=== PATIENT | male | born 1945 | race Caucasian/White ===

== ENCOUNTER 2018-11-20 13:10 | Outpatient (CLI) | payer MEDICARE, BC ==
--- NOTE | 2018-11-20 13:27 | RAD ---
CHEST 2 VIEWS: INDICATION: Dyspnea. COMPARISON: Comparison from 12/02/2016 was reviewed. FINDINGS: There is mild cardiomegaly. Lungs are clear. There is a multilead AICD overlying the left chest wal l. There is a chronic-appearing compression abnormality involving L1 which is stable. IMPRESSION: Stable mild cardiomegaly. No acute cardiopulmonary abnormality. POS: C
== END 2018-11-20 13:11 | disposition home or self-care (01) ==
LOC: RAD 13:10
PROVIDERS: ATTEND Internal Medicine Pulmonary Disease
DX: R06.00 Dyspnea, unspecified (principal); I51.7 Cardiomegaly
CPT/HCPCS: 71046

== ENCOUNTER 2019-12-12 10:06 | Observation (INO) | payer MEDICARE, BC ==
[~2019-12-12 10:06] MED LIST: Iopamidol-370 76% 500 ML 1 ML ONE
[2019-12-12 10:35] LABS: #Basophils 0.1 thou/uL (0.0-0.2); #Eosinphils 0.2 thou/uL (0.0-0.7); #Lymphocytes 2.5 thou/uL (1.20-3.40); #Monocytes 1.4 thou/uL (0.11-0.59); #Neutrophils 9.5 thou/uL (1.40-6.50); %Basophils 0.7 % (0.0-1.0); %Eosinophils 1.7 % (0.0-10.0); %Lymphocytes 17.9 % (21.0-51.0); %Monocytes 10.4 % (0.0-10.0); %Neutrophils 69.4 % (42.0-75.0); Hemoglobin 14.6 g/dL (14.0-18.0); Mean Corpuscular Hemoglobin 30.5 pg (27.0-31.0); Mean Corpuscular Volume 95.3 fL (78.0-98.0); Platelet Count 223 thou/uL (130-400); RBC Distribution Width 14.1 % (11.5-14.5); Red Blood Cell (RBC) Count 4.77 mill/uL (4.70-6.10); White Blood Cell (WBC) Count 13.7 thou/uL (4.8-10.8)
[2019-12-12 10:44] LABS: INR-International Normal Ratio 1.9; PTT 38.5 SEC (22.9-36.1); Prothrombin Time 21.9 SEC (12.0-14.7)
--- NOTE | 2019-12-12 10:58 | CT ---
CT ANGIOGRAM NECK WITH CONTRAST CT ANGIOGRAM BRAIN WITH CONTRAST: DATE: 12/12/2019 HISTORY: 74-year-old male with acute stroke symptoms: Left sided weakness. Dr. Birch verbally gave this level 2 stroke alert report to ER Dr. Parker at 10:44 AM 12/12/2019 TECHNIQUE: After IV contrast injection, arterial bolus chasing technique scan performed from AP window to vertex of head. Coronal and sagittal 3-D MIP reconstructions. FINDINGS: No thrombus or high-grade stenosis of M1 segments of bilateral MCAs, bilateral carotid siphons, bilat eral A1 and A2 segments of ACAs, intracranial bilateral vertebral arteries, basilar, P1 and P2 segments of bilateral meat lugger, proximal aspects of bilateral superior cerebellar's, bilateral PICA s, bi lateral cervical vertebral levels, brachiocephalic, bilateral subclavian, bilateral common carotid, and bilateral cervical internal carotid, arteries. There is mild calcified plaque in the bilateral pr oximal internal carotid arteries and proximal right subclavian artery. IMPRESSION: No evidence of high-grade stenosis, thrombosis, or occlusion, of major arteries of head and neck.
[2019-12-12 10:59] LABS: ALT (SGPT) 11 U/L (8-55); AST (SGOT) 13 U/L (5-34); Alkaline Phosphatase 47 U/L (40-110); Anion Gap 10 mmol/L (10-20); BUN (Urea Nitrogen) 23 mg/dL (8.4-25.7); Bilirubin, Total 0.8 mg/dL (0.2-1.2); Calc. Creatinine Clearance 0 mL/min (70-130); Calcium 9.1 mg/dL (7.8-10.44); Carbon Dioxide 28 mmol/L (23-31); Chloride 103 mmol/L (98-107); Estimated GFR-MDRD 68; Glucose 125 mg/dL (83-110); Potassium 4.3 mmol/L (3.5-5.1); Sodium 137 mmol/L (136-145)
--- NOTE | 2019-12-12 11:17 | CT ---
CT BRAIN WITHOUT CONTRAST: Date; 12/12/2019 HISTORY: Left-sided weakness which has resolved. COMPARISON: None. FINDINGS: There is no acute hemorrhage or infarct. No midline shift or mass effect. Ventricular size and extra- axial CSF spaces are normal. Calvarium is intact. Paranasal sinuses and mastoids are clear. IMPRESSION: No acute intracranial abnormality. Dr. Parker notified of findings via telephone at 1033 hours. CODE CR. POS: HOME
[2019-12-12] MEDS ORDERED: Aspirin Chewable 81 MG TAB ONE (12:57)
[2019-12-12] MEDS ORDERED: Acetaminophen 325 MG TAB PO PRN (14:27)
[2019-12-12] MEDS ORDERED: Furosemide 40 MG TAB PO SCH (14:30)
[2019-12-12] MEDS ORDERED: Spironolactone 25 MG TAB PO SCH (14:30)
[2019-12-12] MEDS ORDERED: Albuterol Sulfate 1.25 MG/3 ML NEB NEB PRN (14:30)
--- NOTE | 2019-12-12 15:12 | HP ---
CHIEF COMPLAINT: Numbness, left side. HISTORY OF PRESENT ILLNESS: This is a 74-year-old male with history of atrial fibrillation on full anticoagulation; chronic systolic heart failure with a defibrillator in place; hypertension; dyslipidemia; asthma, who reports to the emergency room with the above complaint. The patient states he noticed feeling weak on his left upper arm and shoulder, sometime between 5:00 and 6:30 a.m. He notices it more when he got up to go to the bathroom. He denies any prior history, denies any injuries, states that this is exclusive to the area around his left shoulder and deltoid. He does not note any problems with his elbow or below, and denies any pain. He also denies any facial involvement, vision changes, speech changes, or left leg involvement. The patient was evaluated in the emergency room and presentation concerning for TIA. He received 324 mg of aspirin, and hospitalist called for admission. Given the time of presentation and full anticoagulation, he was not a candidate for tPA. ALLERGIES: NO KNOWN DRUG ALLERGIES. CURRENT MEDICATIONS: Reconciled with the patient by his memory. 1. Spironolactone 25 mg daily. 2. Singulair 10 mg as needed. 3. Juju as needed. 4. Digoxin 125 mcg daily. 5. Carvedilol 6.25 mg b.i.d. 6. Furosemide 40 mg daily. 7. Xarelto 20 mg daily, last dose this morning. 8. Lisinopril 2.5 mg daily. 9. Potassium, unknown dose. 10. Rosuvastatin 10 mg at bedtime. 11. Symbicort twice daily. PAST MEDICAL HISTORY: 1. Atrial fibrillation, on full anticoagulation with Xarelto. 2. Asthma. 3. Allergic rhinitis. 4. Hypertension. 5. Coronary artery disease and history of systolic heart failure with defibrillator. 6. Carotid plaques. PAST SURGICAL HISTORY: 1. Defibrillator. 2. Tonsillectomy. SOCIAL HISTORY: The patient lives with Niya, he uses alcohol 2 to 3 times per week, denies any tobacco. His surrogate decision makers are either a son or daughter and he is a full code. FAMILY HISTORY: Significant for mom who of an [facility], sister and dad who of Parkinson disease. REVIEW OF SYSTEMS: Negative for vision changes, speech changes, nausea, vomiting, or abdominal pain. Also negative for chest pain, difficulty breathing or swelling in legs. All remaining review of systems are reviewed and negative. PHYSICAL EXAMINATION: VITAL SIGNS: Blood pressure 122/59, pulse 85, respirations 17, temperature 97.9 , sat 98% on room air. GENERAL: Awake, alert, responsive, in no apparent distress. Able to speak in full sentences. HEENT: Pupils are equal, round, and reactive to light. Oral mucosa is pink and moist. NECK: Supple, nontender. LYMPHATICS: No palpable cervical or supraclavicular lymphadenopathy. LUNGS: Clear to auscultation bilateral. No audible wheezing, rhonchi, or rales. HEART: Normal S1, S2. Regular rate and rhythm. No significant murmur. ABDOMEN: Soft with present bowel sounds. Nontender. Nondistended. EXTREMITIES: No clubbing, cyanosis, or edema. NEUROLOGIC: The cranial nerves 2 through 12 are intact. Upper extremities at the deltoids 5- on the left, 5+/5 on the right, otherwise strength is 5/5 bilateral in the lower extremities and any other muscle groups of the upper extremities. No ankle clonus. Unable to elicit reflexes bilateral. Cerebellar functions slowed , but intact bilateral on [id number]. PSYCH: Appears euthymic, a&o x 4 VASCULAR: 2+ radial pulses LABORATORY DATA: Reviewed. CBC; 13.7, 14.6, 45.4, 223. INR 1.9. Chemistry; 137, 4.3, 103, 28, 23, 1.06, 125. T-bilirubin 0.8, AST 13, ALT 11, alkaline phosphatase 47, total protein 7, albumin 4. Troponin negative. CK 39. CT [place] angiography with contrast shows no evidence of high-grade stenosis, thrombosis, or occlusion at the major arteries of the head and neck. Brain CT is personally reviewed. No acute intracranial abnormality. EKG shows a paced rhythm. No ST changes. IMPRESSION: 1. Left shoulder paresthesias and weakness, new in onset in a patient who was not a candidate for tPA. 2. History of chronic systolic heart failure, compensated. 3. History of asthma, no signs of acute exacerbation. 4. Hypertension. 5. Dyslipidemia. 6. Chronic atrial fibrillation, on full anticoagulation with a paced rhythm. 7. Coronary artery disease, asymptomatic. PLAN: 1. Observation status in the hospital. 2. TIA workup to include a brain MRI, echocardiogram, evaluation by speech, PT, OT as well as neurology consultation. 3. Because of the focal neurologic changes in the left deltoid area/shoulder, we will order an MRI of the C-spine. 4. Check a fasting lipid profile. Continue a statin. 5. The patient has not taken any of his home medications except for Xarelto. We will order them all now with hold parameters for his antihypertensives. 6. Monitor on telemetry. 7. Anticipated length of stay is overnight based for the workup above. 8. DVT prophylaxis. He is fully anticoagulated with Xarelto. 9. GI prophylaxis not indicated. He will be written for a heart healthy diet. 10. Code status is full and surrogate decision maker is as above. 11. Reviewed the plan of care with the patient, who demonstrates understanding and agrees. No questions or further needs at the end of evaluation. 12. The patient is at high risk given age, comorbidities, and current presentation. Job ID: [id number] MTDD
[2019-12-12 15:35] VITALS: BMI 23.3
[2019-12-12] MEDS ORDERED: Lisinopril 2.5 MG TAB PO SCH (16:00)
[2019-12-12] MEDS ORDERED: Digoxin 0.125 MG TAB PO SCH (16:00)
[2019-12-12] MEDS: Carvedilol 6.25 MG TAB PO SCH (16:52)
[2019-12-12] MEDS ORDERED: Rivaroxaban 10 MG TAB PO SCH (17:00)
[2019-12-12] MEDS: Mometasone 200 MCG/Formoterol 5 MCG 120 PUFF INHALER INH SCH (19:28)
[2019-12-12] MEDS ORDERED: Rosuvastatin 20 MG TAB PO SCH (21:00)
[2019-12-13] MEDS ORDERED: Rivaroxaban 10 MG TAB PO SCH (06:00)
[2019-12-13] MEDS: Mometasone 200 MCG/Formoterol 5 MCG 120 PUFF INHALER INH SCH (07:29)
[2019-12-13] MEDS ORDERED: Furosemide 40 MG TAB PO SCH (07:30)
[2019-12-13] MEDS ORDERED: Spironolactone 25 MG TAB PO SCH (08:00)
[2019-12-13] MEDS ORDERED: Potassium Chloride 10 MEQ TAB PO SCH (08:00)
[2019-12-13 08:42] LABS: #Basophils 0.1 thou/uL (0.0-0.2); #Eosinphils 0.1 thou/uL (0.0-0.7); #Lymphocytes 2.5 thou/uL (1.20-3.40); #Monocytes 0.8 thou/uL (0.11-0.59); #Neutrophils 6.9 thou/uL (1.40-6.50); %Basophils 0.7 % (0.0-1.0); %Eosinophils 1.2 % (0.0-10.0); %Lymphocytes 23.7 % (21.0-51.0); %Monocytes 7.9 % (0.0-10.0); %Neutrophils 66.5 % (42.0-75.0); Hemoglobin 13.8 g/dL (14.0-18.0); Mean Corpuscular HGB CONC 31.7 g/dL (32.0-36.0); Mean Corpuscular Hemoglobin 30.1 pg (27.0-31.0); Mean Corpuscular Volume 95.1 fL (78.0-98.0); Mean Platelet Volume 7.9 fL (7.4-10.4); Platelet Count 207 thou/uL (130-400); RBC Distribution Width 13.9 % (11.5-14.5); Red Blood Cell (RBC) Count 4.57 mill/uL (4.70-6.10); White Blood Cell (WBC) Count 10.4 thou/uL (4.8-10.8)
[2019-12-13] MEDS ORDERED: Lisinopril 2.5 MG TAB PO SCH (09:00)
[2019-12-13] MEDS ORDERED: Aspirin 81 mg Enteric Coated Tablet PO SCH (09:00)
[2019-12-13] MEDS ORDERED: Digoxin 0.125 MG TAB PO SCH (09:00)
[2019-12-13 09:01] LABS: Anion Gap 11 mmol/L (10-20); BUN (Urea Nitrogen) 17 mg/dL (8.4-25.7); Calc. Creatinine Clearance 67 mL/min (70-130); Calcium 8.5 mg/dL (7.8-10.44); Carbon Dioxide 26 mmol/L (23-31); Cardiac Risk 2.7 (Less than 4.5); Chloride 104 mmol/L (98-107); Cholesterol 104 mg/dl (< 200 Desired); Estimated GFR-MDRD 66; Glucose 201 mg/dL (83-110); HDL Cholesterol 39 mg/dL (>60 Neg Risk); LDL Cholesterol, Calculated 48 mg/dL; Potassium 3.8 mmol/L (3.5-5.1); Sodium 137 mmol/L (136-145); Triglycerides 85 mg/dL (Less than 150)
[2019-12-13] MEDS: Carvedilol 6.25 MG TAB PO SCH ×2 (10:17→17:10)
--- NOTE | 2019-12-13 13:14 | CON ---
DATE OF CONSULTATION: 12/13/2019 CONSULTING SERVICE: Neurology. REASON FOR CONSULTATION: Numbness and paresthesias on the left side. HISTORY OF PRESENT ILLNESS: Mr. Pepe Zaragoza is a 74-year-old male with history significant for an atrial fibrillation, on Xarelto; chronic systolic heart failure, status post defibrillator placement; dyslipidemia; asthma; and hypertension, presented to the emergency room with tingling and paresthesias on the left side of the body. According to the patient, he felt weak in the left upper extremity around 5:00 to 6.30 a.m. yesterday when he tried to go to the restroom. He denies any prior history or episodes. He also denies nausea, vomiting, headache, vision changes, problems with speech, or problems with swelling or weakness in the left leg. He came to the emergency room for further evaluation and was given aspirin and then admitted for further evaluation. ALLERGIES: NO KNOWN DRUG ALLERGIES. CURRENT MEDICATIONS: 1. Spironolactone 25 mg daily. 2. Singulair 10 mg as needed. 3. Juju as needed. 4. Digoxin 125 mcg daily. 5. Carvedilol 6.25 mg b.i.d. 6. Furosemide 40 mg daily. 7. Xarelto 20 mg daily. 8. Lisinopril 2.5 mg daily. 9. Potassium. 10. Rosuvastatin. 11. Symbicort twice daily. PAST MEDICAL HISTORY: Atrial fibrillation, on Xarelto; asthma; coronary artery disease; allergic rhinitis; hypertension; status post defibrillator placement. PAST SURGICAL HISTORY: Status post defibrillator placement, tonsillectomy. SOCIAL HISTORY: The patient lives with Niya. He uses alcohol 2 to 3 times a week. He denies any tobacco abuse. FAMILY HISTORY: Significant for mother, who of myocardial infarction. A sister and father had Parkinson disease. REVIEW OF SYSTEMS: Denies nausea, vomiting, headache, chest pain, or abdominal pain. DATA REVIEWED: HCT negative for seizure activity. PHYSICAL EXAMINATION: VITAL SIGNS: Blood pressure 120/60, pulse 80, respiratory rate 18. GENERAL: Awake, alert. HEENT: Pupils are equal and reactive to light. Atraumatic, normocephalic. NECK: Supple. CHEST: Clear. ABDOMEN: Soft. HEART: Regular rate and rhythm. NEUROLOGIC: Mental status: The patient is alert and oriented to person, place, and time. Cranial nerves 2 through 12 intact. Motor: Muscle tone and bulk are normal. Strength is 4+/5 in the left upper extremity, wrist 5/5. Cerebellar: Slow on the left secondary to weakness. Sensory intact. Gait not tested because of the patient safety reasons. Did review the CT scan of the brain, which did not reveal any acute intracranial pathology. CT [place] angiography showed no evidence of high-grade stenosis, thrombosis, or occlusion at the major arteries of head and neck. ASSESSMENT AND PLAN: A 74-year-old male presented with left upper extremity paresthesias and weakness. He has extensive cardiac history and also hypertension and hyperlipidemia with chronic atrial fibrillation, on Xarelto. A head CT reviewed, which was negative for acute intracranial pathology. MRI of the brain could not be performed since the patient has pacemaker, which is not compatible. Consider repeat head CT in 48 hours after symptom onset. Neuro checks every 4 hours. Continue aspirin and statin for secondary stroke prevention. Continue home medication. Continue telemetry. Continue medical management per primary team. PT/OT/Speech. Recommend echocardiography to rule out cardioembolic source. We will continue to follow. Thank you for the consult. Job ID: [id number] MTDD
--- NOTE | 2019-12-13 15:05 | CT ---
CT ANGIOGRAM NECK WITH CONTRAST CT ANGIOGRAM BRAIN WITH CONTRAST: DATE: 12/12/2019 HISTORY: 74-year-old male with acute stroke symptoms: Left sided weakness. Dr. Birch verbally gave this level 2 stroke alert report to ER Dr. Parker at 10:44 AM 12/12/2019 TECHNIQUE: After IV contrast injection, arterial bolus chasing technique scan performed from AP window to vertex of head. Coronal and sagittal 3-D MIP reconstructions. FINDINGS: No thrombus or high-grade stenosis of M1 segments of bilateral MCAs, bilateral carotid siphons, bilat eral A1 and A2 segments of ACAs, intracranial bilateral vertebral arteries, basilar, P1 and P2 segments of bilateral resident surgeon, proximal aspects of bilateral superior cerebellar's, bilateral PICA s, bi lateral cervical vertebral levels, brachiocephalic, bilateral subclavian, bilateral common carotid, and bilateral cervical internal carotid, arteries. There is mild calcified plaque in the bilateral pr oximal internal carotid arteries and proximal right subclavian artery. IMPRESSION: No evidence of high-grade stenosis, thrombosis, or occlusion, of major arteries of head and neck. Transcribed Date/Time: 12/13/2019 3:05 PM
[2019-12-13 15:46] VITALS: BP 106/52; TEMP 98.5
--- NOTE | 2019-12-13 16:01 | PDOC.HOSPP ---
- Subjective Encounter Date: 12/13/19 (f/u left shoulder weakness) Encounter Time: 15:59 Subjective: Pt reports his shoulder is improved - stronger and less numbness. HE denies any new symptoms or concerns. - Objective Vital Signs & Weight: Vital Signs (12 hours) Temp Pulse Pulse Pulse Resp BP BP 12/13/19 15:19 98.5 F 79 16 12/13/19 11:58 97.7 F 80 18 12/13/19 10:17 80 12/13/19 10:03 80 87 111/55 L 126/89 12/13/19 07:08 98.3 F 80 18 12/13/19 04:00 97.5 F L 80 18 BP Pulse Ox 12/13/19 15:19 106/52 L 95 12/13/19 11:58 105/52 L 98 12/13/19 10:17 12/13/19 10:03 12/13/19 07:08 119/58 L 97 12/13/19 04:00 115/56 L 98 Weight Weight 176 lb 6.4 oz I&O: 12/12/19 12/13/19 12/14/19 06:59 06:59 06:59 Intake Total 1100 600 Output Total 450 Balance 650 600 Result Diagrams: 12/13/19 08:24 12/13/19 08:24 EKG Reviewed by me: Yes (tele - paced rhythm) Hospitalist ROS - Medication Medications: Active Medications Generic Name Dose Route Start Last Admin Trade Name Freq PRN Reason Stop Dose Admin Aspirin 81 mg 12/13/19 09:00 12/13/19 10:17 Ecotrin PO 81 mg DAILY PAULA Administration Carvedilol 6.25 mg 12/12/19 17:00 12/13/19 10:17 Coreg PO 6.25 mg BID-WM PAULA Administration Digoxin 0.125 mg 12/13/19 09:00 12/13/19 10:17 Lanoxin PO 0.125 mg DAILY PAULA Administration Furosemide 40 mg 12/13/19 07:30 12/13/19 06:06 Lasix PO 40 mg DAILY-AC PAULA Administration Lisinopril 2.5 mg 12/13/19 09:00 12/13/19 10:17 Zestril PO 2.5 mg DAILY PAULA Administration Mometasone Furoate/Formoterol Fumar 2 puff 12/12/19 18:30 12/13/19 07:29 Dulera 200 Mcg/5 Mcg Inhaler INH 2 puff BID-RT PAULA Administration Potassium Chloride 10 meq 12/13/19 08:00 12/13/19 10:17 Klor-Con 10 PO 10 meq QAM-WM PAULA Administration Rivaroxaban 20 mg 12/13/19 06:00 12/13/19 06:06 Xarelto PO 20 mg 0600 PAULA Administration Rosuvastatin Calcium 20 mg 12/12/19 21:00 12/12/19 20:19 Crestor PO 20 mg HS PAULA Administration Spironolactone 25 mg 12/13/19 08:00 12/13/19 10:17 Aldactone PO 25 mg QAM-WM PAULA Administration - Exam General Appearance: NAD Heart: RRR, no murmur Respiratory: CTAB, no wheezes, no rales, no ronchi, no tachypnea Gastrointestinal: soft, non-tender, non-distended, normal bowel sounds Extremities: no cyanosis, no clubbing, no edema Musculoskeletal: normal tone Hosp A/P (1) Shoulder weakness Code(s): R29.898 - [facility] SYMPTOMS AND SIGNS INVOLVING THE MUSCULOSKELETAL SYSTEM Status: Acute (2) Chronic atrial fibrillation Code(s): I48.20 - CHRONIC ATRIAL FIBRILLATION, UNSPECIFIED Status: Chronic (3) Chronic systolic heart failure Code(s): I50.22 - CHRONIC SYSTOLIC (CONGESTIVE) HEART FAILURE Status: Chronic (4) Asthma Code(s): J45.909 - UNSPECIFIED ASTHMA, UNCOMPLICATED Status: Chronic Qualifiers: Asthma severity: unspecified severity Asthma persistence: persistent (5) Hypertension Code(s): I10 - ESSENTIAL (PRIMARY) HYPERTENSION Status: Chronic Qualifiers: Hypertension type: essential hypertension Qualified Code(s): I10 - Essential (primary) hypertension (6) Coronary artery disease Code(s): I25.10 - ATHSCL HEART DISEASE OF [place] CORONARY ARTERY W/O ANG PCTRS Status: Chronic Qualifiers: Coronary Disease-Associated Artery/Lesion type: [place] artery (7) Carotid artery plaque Code(s): I65.29 - OCCLUSION AND STENOSIS OF UNSPECIFIED CAROTID ARTERY Status : Chronic Qualifiers: Laterality: unspecified laterality Qualified Code(s): I65.29 - Occlusion and stenosis of unspecified carotid artery (8) Dyslipidemia Code(s): E78.5 - HYPERLIPIDEMIA, UNSPECIFIED Status: Chronic - Plan Pt overall improved Appreciate Neurology eval - cannot rule out stroke and unable to complete MRI due to defibrillator - repeat head CT now to check for interval change Lipids well controlled paced rhythm on tele - await Echo - pt sees Dr. De La Cruz as an outpatient dvt prophy - ambulatory gi prophy - not indicated code status full anticipate d/c tonight after repeat head CT complete. pt is on appropriate medications for stroke risk reduction
--- NOTE | 2019-12-13 17:04 | CT ---
HEAD CT WITHOUT CONTRAST: Comparison: 12-12-2019 History: Evaluate for interval change. Stroke versus transit ischemic attack. FINDINGS: No parenchymal hemorrhage. No extraaxial hematoma. No midline shift. Basilar cisterns are patent. Brain volume, age appropriate. Cortical ramos white matter differentiatio n is preserved. No hydrocephalus. Adequate aeration of the visualized sinuses and mastoid air cells. Calvarium is intact. IMPRESSION: No acute intracranial process. POS: PPP
--- NOTE | 2019-12-14 12:30 | DIS ---
DATE OF ADMISSION: 12/12/2019 DATE OF DISCHARGE: 12/13/2019 CONSULTANTS: Dr. Josefina Warren, of Neurology. MEDICATIONS: Reconciled at discharge. New medication. 1. Aspirin 81 mg daily, this was added for stroke risk reduction. Medications to continue: 1. Symbicort 80-4.5 one inhalation b.i.d. 2. Coreg 6.25 mg b.i.d. 3. Digoxin 0.125 mg daily. 4. Fexofenadine 180 mg daily as needed. 5. Furosemide 40 mg daily. 6. Lisinopril 2.5 mg daily. 7. Singulair 10 mg daily as needed. 8. Potassium chloride 20 mEq daily. 9. Xarelto 20 mg at bedtime. 10. Crestor 10 mg daily. 11. Spironolactone 12.5 mg daily. PENDING STUDIES: Echocardiogram result - to be obtained from Dr. De La Cruz FINAL DIAGNOSIS: Left shoulder numbness and weakness, improved, cannot rule out stroke. SECONDARY DIAGNOSES: 1. Atrial fibrillation, on full anticoagulation with Xarelto. 2. Asthma, controlled. 3. Allergic rhinitis. 4. Hypertension. 5. History of systolic heart failure with defibrillator. 6. Coronary artery disease. 7. History of carotid plaques. HISTORY OF PRESENT ILLNESS: Mr. Zaragoza is a 74-year-old male with the above medical problems, who presented to the emergency room after the onset of numbness and weakness in his left shoulder. The patient reported the onset between 5 and 6: 30 a.m. that he noticed more when he got up to go to the bathroom. He denies any trauma, any other neurologic changes, any precipitating or relieving factors. Because of his presentation concerning for TIA versus stroke, he received 324 mg of aspirin, and hospitalist called for admission. HOSPITAL COURSE: The patient was monitored on telemetry and maintained a paced rhythm. He was evaluated with a CT scan performed twice both without any acute intracranial process. He was evaluated by Neurology and cannot rule out stroke. The patient does have risk factors for stroke, however, does not have a classic presentation. Due to his defibrillator, the patient is not a candidate for MRI. The patient did undergo a CT angiogram, which was negative. He also had an echocardiogram with results pending at time of discharge. The patient does follow up with Dr. De La Cruz on an outpatient basis and we will request that he follow up this echocardiogram with Dr. De La Cruz. One addition to his medications and that is low dose aspirin for stroke risk reduction. Otherwise, the patient will continue on his usual medications. His blood pressure is controlled, there are no signs of heart failure, and his breathing is controlled. PHYSICAL EXAMINATION: Please see note on the chart for today. LABORATORY DATA: CBC today is 10.4, 13.8, 43.4, 207, white blood cell count yesterday was 13.7. INR yesterday 1.9. Renal panel 137, 3.8, 104, 26, 17, 1.09, 201. Of note, this was not a fasting sample. This was not a fasting glucose. T bilirubin 0.8, AST 13, ALT 11, alkaline phosphatase 47, total protein 7, albumin 4. Cholesterol 104, triglycerides 85, LDL 48, HDL 39. Brain CT performed at 1554 hours today, no acute intracranial process. CT angio with contrast performed on December 11, no evidence of high-grade stenosis, thrombosis, or occlusion of major arteries of the head and neck. Brain CT on December 11, negative for acute intracranial abnormality. DIET: Heart healthy, fluid restricted per Dr. De La Cruz's prior instructions. ACTIVITY: As tolerated. FOLLOWUP: 1. With the primary care provider to follow up within a week to review this hospitalization, reassess the left shoulder and address any other health needs. 2. Follow up with Dr. De La Cruz for the results of the echocardiogram at the patient's earliest convenience. DISCHARGE DISPOSITION: Home. CODE STATUS: Full. Reviewed with the patient this hospitalization, the results that we have, that we are unable to rule out stroke. However, the presentation is atypical, and the seek-care precautions. We also discussed the importance of followup. There were no questions or further needs at the end of evaluation. Total time coordinating discharge 30 minutes. Job ID: [id number] MTDD
== END 2019-12-13 18:15 | disposition home or self-care (01) ==
LOC: ERS 10:06 → 2SE 11:15
PROVIDERS: ADMIT Family Medicine; ATTEND Family Medicine
DX: R20.2 Paresthesia of skin (principal); R53.1 Weakness; I48.20 Chronic atrial fibrillation, unspecified; I11.0 Hypertensive heart disease with heart failure; I50.22 Chronic systolic (congestive) heart failure; I25.10 Atherosclerotic heart disease of native coronary artery without angina pectoris; I65.29 Occlusion and stenosis of unspecified carotid artery; E78.5 Hyperlipidemia, unspecified; J45.909 Unspecified asthma, uncomplicated; Z79.01 Long term (current) use of anticoagulants; Z79.899 Other long term (current) drug therapy; Z91.013 Allergy to seafood
CPT/HCPCS: 70450 ×2; 70496; 70498; 80048; 80053; 80061; 82550; 82962; 84484; 85025 ×2; 85610; 85730; 93005; 93306; 94640 ×2; 94664; 97139 ×4; 99285; G0378 ×3; 36415; 36416; Q9967

== ENCOUNTER 2021-01-18 10:03 | Outpatient (CLI) | payer MEDICARE, BC | END 2021-01-18 10:04 | disposition home or self-care (01) | LOC: BICRAD 10:03 | PROVIDERS: ATTEND Internal Medicine Pulmonary Disease | DX: R06.00 Dyspnea, unspecified (principal); I51.7 Cardiomegaly | CPT/HCPCS: 71046 ==

== ENCOUNTER 2021-05-09 15:26 | Emergency (ER) | payer OTHER, MEDICARE, BC ==
[2021-05-09 16:18] LABS: #Basophils 0.1 thou/uL (0.0-0.2); #Eosinphils 0.2 thou/uL (0.0-0.7); #Lymphocytes 2.3 thou/uL (1.20-3.40); #Monocytes 1.3 thou/uL (0.11-0.59); #Neutrophils 8.3 thou/uL (1.40-6.50); %Basophils 0.7 % (0.0-1.0); %Eosinophils 1.7 % (0.0-10.0); %Lymphocytes 18.9 % (21.0-51.0); %Monocytes 10.7 % (0.0-10.0); %Neutrophils 68.1 % (42.0-75.0); Hemoglobin 12.3 g/dL (14.0-18.0); Mean Corpuscular HGB CONC 33.1 g/dL (32.0-36.0); Mean Corpuscular Volume 90.4 fL (78.0-98.0); Mean Platelet Volume 7.7 fL (7.4-10.4); Platelet Count 271 thou/uL (130-400); RBC Distribution Width 13.6 % (11.5-14.5); White Blood Cell (WBC) Count 12.1 thou/uL (4.8-10.8)
[2021-05-09 16:27] LABS: INR-International Normal Ratio 1.2; Prothrombin Time 15.6 sec (12.0-14.7)
[2021-05-09 16:28] LABS: PTT 29.7 sec (22.9-36.1)
[2021-05-09 16:37] LABS: ALT (SGPT) 11 U/L (8-55); AST (SGOT) 16 U/L (5-34); Albumin 3.6 g/dL (3.4-4.8); Alkaline Phosphatase 55 U/L (40-110); Anion Gap 14 mmol/L (10-20); BUN (Urea Nitrogen) 15 mg/dL (8.4-25.7); CK (CPK) 151 U/L (30-200); Calc. Creatinine Clearance 0 mL/min (70-130); Calcium 8.7 mg/dL (7.8-10.44); Carbon Dioxide 25 mmol/L (23-31); Chloride 95 mmol/L (98-107); Globulin 2.8 g/dL (2.4-3.5); Glucose 104 mg/dL (83-110); Potassium 4.5 mmol/L (3.5-5.1); Protein, Total 6.4 g/dL (5.8-8.1); Sodium 129 mmol/L (136-145)
== END 2021-05-09 17:19 | disposition home or self-care (01) ==
LOC: ERS 15:26
DX: S01.81XA Laceration without foreign body of other part of head, initial encounter (principal); T81.41XA Infection following a procedure, superficial incisional surgical site, initial encounter; W01.0XXA Fall on same level from slipping, tripping and stumbling without subsequent striking against object, initial encounter; I11.0 Hypertensive heart disease with heart failure; I50.9 Heart failure, unspecified; J45.909 Unspecified asthma, uncomplicated
CPT/HCPCS: 12011; 36415; 70450; 71045; 72125; 80053; 82550; 83880; 84484; 85025; 85610; 85730; 93005

== ENCOUNTER 2021-06-01 15:39 | Emergency (ER) | payer MEDICARE, BC ==
[2021-06-01 17:26] LABS: #Basophils 0.1 thou/uL (0.0-0.2); #Eosinphils 0.1 thou/uL (0.0-0.7); #Lymphocytes 2.8 thou/uL (1.20-3.40); #Monocytes 1.9 thou/uL (0.11-0.59); #Neutrophils 10.3 thou/uL (1.40-6.50); %Basophils 0.5 % (0.0-1.0); %Eosinophils 0.7 % (0.0-10.0); %Lymphocytes 18.6 % (21.0-51.0); %Monocytes 12.7 % (0.0-10.0); %Neutrophils 67.5 % (42.0-75.0); Hemoglobin 12.2 g/dL (14.0-18.0); Mean Corpuscular HGB CONC 33.2 g/dL (32.0-36.0); Mean Corpuscular Volume 90.3 fL (78.0-98.0); Mean Platelet Volume 7.6 fL (7.4-10.4); Platelet Count 342 thou/uL (130-400); RBC Distribution Width 14.1 % (11.5-14.5); Red Blood Cell (RBC) Count 4.08 mill/uL (4.70-6.10); White Blood Cell (WBC) Count 15.2 thou/uL (4.8-10.8)
[2021-06-01 17:38] LABS: INR-International Normal Ratio 1.2; Prothrombin Time 15.3 sec (12.0-14.7)
[2021-06-01 17:43] LABS: ALT (SGPT) 18 U/L (8-55); AST (SGOT) 22 U/L (5-34); Albumin 3.7 g/dL (3.4-4.8); Alkaline Phosphatase 60 U/L (40-110); Anion Gap 13 mmol/L (10-20); BUN (Urea Nitrogen) 22 mg/dL (8.4-25.7); Bilirubin, Total 0.5 mg/dL (0.2-1.2); Calc. Creatinine Clearance 0 mL/min (70-130); Calcium 9.4 mg/dL (7.8-10.44); Carbon Dioxide 27 mmol/L (23-31); Chloride 97 mmol/L (98-107); Globulin 3.3 g/dL (2.4-3.5); Glucose 83 mg/dL (83-110); Potassium 4.4 mmol/L (3.5-5.1); Sodium 133 mmol/L (136-145)
== END 2021-06-01 18:18 | disposition home or self-care (01) ==
LOC: ERS 15:39
DX: S06.5X9A Traumatic subdural hemorrhage with loss of consciousness of unspecified duration, initial encounter (principal); I50.9 Heart failure, unspecified; I11.0 Hypertensive heart disease with heart failure; J45.909 Unspecified asthma, uncomplicated; W19.XXXA Unspecified fall, initial encounter; Z79.899 Other long term (current) drug therapy
CPT/HCPCS: 36415; 70450; 80053; 85025; 85610

== ENCOUNTER 2021-07-10 10:43 | Emergency (ER) | payer MEDICARE, BC ==
[2021-07-10 11:24] LABS: #Basophils 0.1 thou/uL (0.0-0.2); #Eosinphils 0.2 thou/uL (0.0-0.7); #Lymphocytes 2.2 thou/uL (1.20-3.40); #Neutrophils 9.5 thou/uL (1.40-6.50); %Basophils 0.7 % (0.0-1.0); %Eosinophils 1.7 % (0.0-10.0); %Lymphocytes 15.5 % (21.0-51.0); %Monocytes 14.3 % (0.0-10.0); %Neutrophils 67.8 % (42.0-75.0); Hemoglobin 11.4 g/dL (14.0-18.0); Mean Corpuscular HGB CONC 30.3 g/dL (32.0-36.0); Mean Corpuscular Hemoglobin 27.8 pg (27.0-31.0); Mean Corpuscular Volume 91.7 fL (78.0-98.0); Mean Platelet Volume 6.9 fL (7.4-10.4); Platelet Count 365 thou/uL (130-400); Red Blood Cell (RBC) Count 4.12 mill/uL (4.70-6.10); White Blood Cell (WBC) Count 14.1 thou/uL (4.8-10.8)
[2021-07-10 11:52] LABS: ALT (SGPT) 12 U/L (8-55); AST (SGOT) 16 U/L (5-34); Albumin 3.4 g/dL (3.4-4.8); Alkaline Phosphatase 60 U/L (40-110); Anion Gap 11 mmol/L (10-20); BUN (Urea Nitrogen) 20 mg/dL (8.4-25.7); Bilirubin, Total 0.8 mg/dL (0.2-1.2); Calc. Creatinine Clearance 0 mL/min (70-130); Calcium 8.6 mg/dL (7.8-10.44); Carbon Dioxide 24 mmol/L (23-31); Chloride 97 mmol/L (98-107); Globulin 3.3 g/dL (2.4-3.5); Glucose 98 mg/dL (83-110); Lipase 20 U/L (8-78); Potassium 3.9 mmol/L (3.5-5.1); Protein, Total 6.7 g/dL (5.8-8.1); Sodium 128 mmol/L (136-145)
== END 2021-07-10 15:30 | disposition home or self-care (01) ==
LOC: ERS 10:43
DX: E86.0 Dehydration (principal); I11.0 Hypertensive heart disease with heart failure; I50.9 Heart failure, unspecified; J45.909 Unspecified asthma, uncomplicated; Z79.899 Other long term (current) drug therapy
CPT/HCPCS: 36415; 71045; 80053; 83690; 84484; 85025; 93005

== ENCOUNTER 2021-10-01 14:41 | Outpatient (CLI) | payer MEDICARE, BC ==
[~2021-10-01 14:41] MED LIST changes: +Iopamidol 370 76% 100 ML VIAL ONE; -Iopamidol-370 76% 500 ML 1 ML ONE
== END 2021-10-01 14:42 | disposition home or self-care (01) ==
LOC: CT 14:41
PROVIDERS: ATTEND Internal Medicine
DX: C44.41 Basal cell carcinoma of skin of scalp and neck (principal); C44.329 Squamous cell carcinoma of skin of other parts of face; R22.1 Localized swelling, mass and lump, neck; N28.9 Disorder of kidney and ureter, unspecified; Z98.890 Other specified postprocedural states
CPT/HCPCS: 70491; 71260; 82565

== ENCOUNTER 2021-12-27 13:44 | Outpatient (CLI) | payer MEDICARE, BC | END 2021-12-27 13:45 | disposition home or self-care (01) | LOC: RAD 13:44 | PROVIDERS: ATTEND Internal Medicine | DX: J44.9 Chronic obstructive pulmonary disease, unspecified (principal) | CPT/HCPCS: 71046 ==

== ENCOUNTER 2022-01-07 11:43 | Inpatient (IN) | payer MEDICARE, BC ==
[2022-01-07 12:10] LABS: #Basophils 0.1 thou/uL (0.0-0.2); #Eosinphils 0.2 thou/uL (0.0-0.7); #Lymphocytes 2.1 thou/uL (1.20-3.40); #Monocytes 1.8 thou/uL (0.11-0.59); #Neutrophils 8.3 thou/uL (1.40-6.50); %Basophils 0.5 % (0.0-1.0); %Eosinophils 1.3 % (0.0-10.0); %Lymphocytes 17.1 % (21.0-51.0); %Monocytes 14.1 % (0.0-10.0); Hemoglobin 14.7 g/dL (14.0-18.0); Mean Corpuscular HGB CONC 32.7 g/dL (32.0-36.0); Mean Corpuscular Hemoglobin 29.7 pg (27.0-31.0); Mean Corpuscular Volume 90.7 fL (78.0-98.0); Platelet Count 219 thou/uL (130-400); Red Blood Cell (RBC) Count 4.94 mill/uL (4.70-6.10); White Blood Cell (WBC) Count 12.4 thou/uL (4.8-10.8)
[2022-01-07 12:32] LABS: ALT (SGPT) 27 U/L (8-55); AST (SGOT) 30 U/L (5-34); Alkaline Phosphatase 76 U/L (40-110); Anion Gap 15 mmol/L (10-20); BUN (Urea Nitrogen) 109 mg/dL (8.4-25.7); Bilirubin, Total 1.3 mg/dL (0.2-1.2); CK (CPK) 120 U/L (30-200); Calc. Creatinine Clearance 0 mL/min (70-130); Carbon Dioxide 31 mmol/L (23-31); Chloride 85 mmol/L (98-107); Globulin 3.8 g/dL (2.4-3.5); Glucose 138 mg/dL (83-110); Potassium 3.1 mmol/L (3.5-5.1); Protein, Total 7.8 g/dL (5.8-8.1); Sodium 128 mmol/L (136-145)
[2022-01-07 12:55] LABS: CKMB 2.9 ng/mL (0-6.6)
[2022-01-07 13:29] LABS: Bilirubin Negative (Negative); Blood, Urine Negative (Negative); Clarity Clear (Clear); Glucose, Urine (Dipstick) Normal (Negative); Ketone, Urine Negative (Negative); Leukocyte Negative Leu/uL (Negative); Nitrite Negative (Negative); Protein, Urine (Dipstick) Negative (Neg-Trace); Specific Gravity, Urine 1.013 (1.002-1.036); Urobilinogen Normal mg/dL (Less than 2); pH, Urine 6.5 (5.0-9.0)
[2022-01-07] MEDS ORDERED: Norepinephrine 8 MG/0.9% NS 250 ML ONE (14:47)
[2022-01-07] MEDS ORDERED: Enoxaparin Sodium 30 MG/0.3 ML SYRINGE ONE (14:58)
[2022-01-07] MEDS ORDERED: Potassium Chloride 20 MEQ TAB ONE (14:58)
[2022-01-07] MEDS ORDERED: cefTRIAXone\\ROCEPHIN 1 GM VIAL ONE (15:11)
[2022-01-07 15:28] LABS: Lactic Acid 1.5 mmol/L (0.5-2.2)
[2022-01-07] MEDS ORDERED: Vancomycin 1 GM/200 ML BAG ONE (15:44)
[2022-01-07 16:48] LABS: Digoxin Less than 0.15 ng/mL (0.8-2.0)
[2022-01-07 17:31] LABS: SARS-CoV-2 NAA Rapid Test Not Detected (NotDetected)
[2022-01-07] MEDS ORDERED: Norepinephrine 8 MG/0.9% NS 250 ML IVPB PRN (18:05)
[2022-01-07] MEDS ORDERED: Electrolyte Replacement Protocol 1 EACH IVPB PRN (18:05)
[2022-01-07] MEDS ORDERED: Senokot S 8.6-50 MG TAB PO PRN (19:30)
[2022-01-07] MEDS ORDERED: Calcium Carbonate 500 MG ChewTAB PO PRN (19:30)
[2022-01-07] MEDS ORDERED: Ondansetron PF 4 MG/2 ML Vial IVP PRN (19:30)
[2022-01-07] MEDS ORDERED: Acetaminophen 325 MG TAB PO PRN (19:30)
[2022-01-07] MEDS ORDERED: Ondansetron ODT 4 MG TAB PO PRN (19:30)
[2022-01-07] MEDS ORDERED: Vancomycin 1 GM in Premix Bag 1 BAG IVPB SCH (19:30)
[2022-01-07 19:31] LABS: Anion Gap 11 mmol/L (10-20); BUN (Urea Nitrogen) 86 mg/dL (8.4-25.7); Calc. Creatinine Clearance 0 mL/min (70-130); Calcium 7.6 mg/dL (7.8-10.44); Carbon Dioxide 28 mmol/L (23-31); Chloride 94 mmol/L (98-107); Glucose 95 mg/dL (83-110); Magnesium 2.5 mg/dL (1.6-2.6); Potassium 3.2 mmol/L (3.5-5.1); Sodium 130 mmol/L (136-145)
[2022-01-07 19:32] VITALS: BMI 18.0
[2022-01-07 19:33] LABS: Troponin I 0.045 ng/mL (< 0.028)
[2022-01-07] MEDS ORDERED: Potassium Chloride 20 MEQ TAB PO SCH (19:45)
[2022-01-07] MEDS: Cefepime 2 GM in Sodium Chloride 0.9% 100 ML IVPB SCH (20:28)
[2022-01-07] MEDS ORDERED: Famotidine 20 MG TAB PO SCH (21:00)
[2022-01-07 23:22] LABS: Troponin I 0.039 ng/mL (< 0.028)
[2022-01-08 04:44] LABS: #Basophils 0.1 thou/uL (0.0-0.2); #Eosinphils 0.3 thou/uL (0.0-0.7); #Lymphocytes 2.3 thou/uL (1.20-3.40); #Monocytes 1.3 thou/uL (0.11-0.59); #Neutrophils 5.4 thou/uL (1.40-6.50); %Basophils 1.1 % (0.0-1.0); %Eosinophils 2.8 % (0.0-10.0); %Lymphocytes 24.3 % (21.0-51.0); %Monocytes 13.7 % (0.0-10.0); %Neutrophils 58.1 % (42.0-75.0); Hemoglobin 12.5 g/dL (14.0-18.0); Mean Corpuscular HGB CONC 32.7 g/dL (32.0-36.0); Mean Corpuscular Hemoglobin 29.8 pg (27.0-31.0); Mean Platelet Volume 7.7 fL (7.4-10.4); Platelet Count 201 thou/uL (130-400); RBC Distribution Width 15.8 % (11.5-14.5); Red Blood Cell (RBC) Count 4.19 mill/uL (4.70-6.10); White Blood Cell (WBC) Count 9.3 thou/uL (4.8-10.8)
[2022-01-08 05:19] LABS: Phosphorus 2.4 mg/dL (2.3-4.7)
[2022-01-08 05:24] LABS: ALT (SGPT) 21 U/L (8-55); AST (SGOT) 25 U/L (5-34); Alkaline Phosphatase 56 U/L (40-110); Anion Gap 11 mmol/L (10-20); BUN (Urea Nitrogen) 66 mg/dL (8.4-25.7); Bilirubin, Total 0.9 mg/dL (0.2-1.2); Calc. Creatinine Clearance 57 mL/min (70-130); Calcium 7.6 mg/dL (7.8-10.44); Carbon Dioxide 27 mmol/L (23-31); Chloride 99 mmol/L (98-107); Globulin 2.9 g/dL (2.4-3.5); Glucose 65 mg/dL (83-110); Magnesium 2.5 mg/dL (1.6-2.6); Potassium 3.6 mmol/L (3.5-5.1); Protein, Total 5.9 g/dL (5.8-8.1); Sodium 133 mmol/L (136-145)
[2022-01-08] MEDS: Levothyroxine Sodium 25 MCG TAB PO SCH (06:27)
[2022-01-08] MEDS: Cefepime 2 GM in Sodium Chloride 0.9% 100 ML IVPB SCH ×2 (08:11→20:34)
[2022-01-08] MEDS: Vancomycin 1 GM in Premix Bag 1 BAG IVPB SCH (16:57)
[2022-01-08] MEDS ORDERED: Rivaroxaban 15 MG TAB PO SCH (17:00)
[2022-01-08] MEDS: Famotidine 20 MG TAB PO SCH (20:34)
[2022-01-09 04:14] LABS: ALT (SGPT) 19 U/L (8-55); AST (SGOT) 22 U/L (5-34); Albumin 2.9 g/dL (3.4-4.8); Alkaline Phosphatase 58 U/L (40-110); Anion Gap 11 mmol/L (10-20); BUN (Urea Nitrogen) 43 mg/dL (8.4-25.7); Bilirubin, Total 0.9 mg/dL (0.2-1.2); Calc. Creatinine Clearance 70 mL/min (70-130); Carbon Dioxide 23 mmol/L (23-31); Chloride 102 mmol/L (98-107); Glucose 79 mg/dL (83-110); Potassium 3.9 mmol/L (3.5-5.1); Protein, Total 5.9 g/dL (5.8-8.1); Sodium 132 mmol/L (136-145)
[2022-01-09 04:54] LABS: Band 3 % (5-11); Hemoglobin 13.4 g/dL (14.0-18.0); Hypochromia SLIGHT = 6-15 cells (100X) (0-5/hpf); Lymphocytes 23 % (21-51); MDiff Complete? YES; Mean Corpuscular HGB CONC 32.8 g/dL (32.0-36.0); Mean Corpuscular Hemoglobin 30.9 pg (27.0-31.0); Mean Corpuscular Volume 94.2 fL (78.0-98.0); Mean Platelet Volume 7.6 fL (7.4-10.4); Monocytes 9 % (0-10); Neutrophil 65 % (42-75); Platelet Count 171 thou/uL (130-400); Platelet Morphology Comment Appears Adequate; Red Blood Cell (RBC) Count 4.34 mill/uL (4.70-6.10); White Blood Cell (WBC) Count 12.3 thou/uL (4.8-10.8)
[2022-01-09] MEDS: Levothyroxine Sodium 25 MCG TAB PO SCH (06:39)
[2022-01-09] MEDS: Cefepime 2 GM in Sodium Chloride 0.9% 100 ML IVPB SCH (08:02)
[2022-01-09] MEDS: Famotidine 20 MG TAB PO SCH ×2 (08:02→21:31)
[2022-01-09 15:33] LABS: Vancomycin, Trough 8.7 ug/mL
[2022-01-09] MEDS ORDERED: Rivaroxaban 10 MG TAB PO SCH (17:00)
[2022-01-09] MEDS: Vancomycin 1 GM in Premix Bag 1 BAG IVPB SCH (17:04)
[2022-01-10] MEDS: Levothyroxine Sodium 25 MCG TAB PO SCH (05:31)
[2022-01-10] MEDS ORDERED: Carvedilol 6.25 MG TAB PO SCH (08:00)
[2022-01-10] MEDS: Famotidine 20 MG TAB PO SCH (09:45)
[2022-01-10 09:58] LABS: Anion Gap 11 mmol/L (10-20); BUN (Urea Nitrogen) 28 mg/dL (8.4-25.7); Calc. Creatinine Clearance 69 mL/min (70-130); Calcium 8.8 mg/dL (7.8-10.44); Carbon Dioxide 27 mmol/L (23-31); Chloride 102 mmol/L (98-107); Glucose 97 mg/dL (83-110); Magnesium 2.1 mg/dL (1.6-2.6); Phosphorus 2.2 mg/dL (2.3-4.7); Potassium 4.5 mmol/L (3.5-5.1); Sodium 135 mmol/L (136-145)
[2022-01-10 10:01] LABS: #Basophils 0.1 thou/uL (0.0-0.2); #Eosinphils 0.4 thou/uL (0.0-0.7); #Lymphocytes 3.2 thou/uL (1.20-3.40); #Monocytes 1.5 thou/uL (0.11-0.59); #Neutrophils 8.1 thou/uL (1.40-6.50); %Basophils 1.1 % (0.0-1.0); %Lymphocytes 24.1 % (21.0-51.0); %Neutrophils 60.8 % (42.0-75.0); Hemoglobin 13.6 g/dL (14.0-18.0); Mean Corpuscular HGB CONC 32.3 g/dL (32.0-36.0); Mean Corpuscular Hemoglobin 29.3 pg (27.0-31.0); Mean Corpuscular Volume 90.8 fL (78.0-98.0); Mean Platelet Volume 7.9 fL (7.4-10.4); Platelet Count 189 thou/uL (130-400); Red Blood Cell (RBC) Count 4.65 mill/uL (4.70-6.10); White Blood Cell (WBC) Count 13.4 thou/uL (4.8-10.8)
[2022-01-10] MEDS ORDERED: PHOS-NAK 1 PKT PACK PO SCH (11:00)
[2022-01-10 12:15] VITALS: BP 119/57; TEMP 97.8
[2022-01-10] MEDS ORDERED: Rosuvastatin 10 MG TAB PO SCH (21:00)
== END 2022-01-10 15:30 | disposition home health service (06) | DRG 871 ==
LOC: ERS 11:43 → CCU 18:04 → 2NO 01-09 20:17
PROVIDERS: ADMIT Internal Medicine; ATTEND Internal Medicine
PROC: 3E033XZ Introduction of Vasopressor into Peripheral Vein, Percutaneous Approach (ICD-10-PCS; principal; 2022-01-07)
PROC: 02HV33Z Insertion of Infusion Device into Superior Vena Cava, Percutaneous Approach (ICD-10-PCS; 2022-01-07)
DX: R57.1 Hypovolemic shock (principal); I21.A1 Myocardial infarction type 2; I50.22 Chronic systolic (congestive) heart failure; N17.9 Acute kidney failure, unspecified; E87.1 Hypo-osmolality and hyponatremia; I42.9 Cardiomyopathy, unspecified; I48.20 Chronic atrial fibrillation, unspecified; I13.0 Hypertensive heart and chronic kidney disease with heart failure and stage 1 through stage 4 chronic kidney disease, or unspecified chronic kidney disease; E44.0 Moderate protein-calorie malnutrition; Z68.1 Body mass index [BMI] 19.9 or less, adult; I95.9 Hypotension, unspecified; C44.300 Unspecified malignant neoplasm of skin of unspecified part of face; J45.909 Unspecified asthma, uncomplicated; N40.0 Benign prostatic hyperplasia without lower urinary tract symptoms; I25.10 Atherosclerotic heart disease of native coronary artery without angina pectoris; N18.2 Chronic kidney disease, stage 2 (mild); E87.6 Hypokalemia; E03.9 Hypothyroidism, unspecified; R79.89 Other specified abnormal findings of blood chemistry; Z20.822 Contact with and (suspected) exposure to COVID-19; I35.1 Nonrheumatic aortic (valve) insufficiency; Z79.01 Long term (current) use of anticoagulants; Z91.013 Allergy to seafood; Z79.899 Other long term (current) drug therapy; Z95.810 Presence of automatic (implantable) cardiac defibrillator; Z90.49 Acquired absence of other specified parts of digestive tract
CPT/HCPCS: 36415; 36556; 71045; 80048; 80053; 80162; 80202; 81003; 82533; 82550; 82553; 83605; 83735; 83880; 84100; 84439; 84443; 84484; 85025; 86140; 87040; 93005; 93306; 96361; 96365; 96366; 96368; J0692; J0696; J1650; J3370; J3490; U0002

== ENCOUNTER 2022-07-01 11:46 | Outpatient (CLI) | payer MEDICARE, BC | END 2022-07-01 11:47 | disposition home or self-care (01) | LOC: CT 11:46 | PROVIDERS: ATTEND Physician Assistant Surgical | DX: C44.329 Squamous cell carcinoma of skin of other parts of face (principal) | CPT/HCPCS: 70491; 71260 ==

== ENCOUNTER 2022-12-16 16:53 | Inpatient (IN) | payer MEDICARE, BC ==
[2022-12-16 17:55] LABS: #Monocytes 1.1 thou/uL (0.11-0.59); #Neutrophils 5.7 thou/uL (1.40-6.50); %Basophils 0.5 % (0.0-1.0); %Eosinophils 0.1 % (0.0-10.0); %Lymphocytes 16.1 % (21.0-51.0); %Monocytes 13.4 % (0.0-10.0); %Neutrophils 69.3 % (42.0-75.0); Hemoglobin 12.3 g/dL (14.0-18.0); Mean Corpuscular HGB CONC 30.3 g/dL (32.0-36.0); Mean Corpuscular Hemoglobin 26.6 pg (27.0-31.0); Mean Corpuscular Volume 87.9 fl (78.0-98.0); Mean Platelet Volume 12.5 fL (7.4-10.4); Platelet Count 172 10x3/uL (130-400); RBC Distribution Width 20.8 % (11.5-14.5); Red Blood Cell (RBC) Count 4.62 mill/uL (4.70-6.10); White Blood Cell (WBC) Count 8.2 10x3/uL (4.8-10.8)
[2022-12-16 18:17] LABS: ALT (SGPT) 434 U/L (8-55); AST (SGOT) 550 U/L (5-34); Albumin 3.3 g/dL (3.4-4.8); Alkaline Phosphatase 101 U/L (40-110); Anion Gap 23 mmol/L (10-20); BUN (Urea Nitrogen) 92 mg/dL (8.4-25.7); Bilirubin, Total 1.1 mg/dL (0.2-1.2); Calc. Creatinine Clearance 0 mL/min (70-130); Calcium 8.5 mg/dL (7.8-10.44); Carbon Dioxide 20 mmol/L (23-31); Chloride 99 mmol/L (98-107); Estimated GFR 17; Globulin 3.4 g/dL (2.4-3.5); Glucose 104 mg/dL (83-110); Protein, Total 6.7 g/dL (5.8-8.1); Sodium 136 mmol/L (136-145)
[2022-12-16 18:33] LABS: Potassium 6.1 mmol/L (3.5-5.1)
[2022-12-16 18:38] LABS: CKMB 26.5 ng/mL (0-6.6)
[2022-12-16] MEDS ORDERED: Azithromycin 500 MG VIAL ONE (18:51)
[2022-12-16] MEDS ORDERED: cefTRIAXone (ROCEPHIN) 1 GM VIAL ONE (18:51)
[2022-12-16] MEDS ORDERED: Sodium Bicarb 50 MEQ/50 ML VIAL ONE (19:37)
[2022-12-16] MEDS ORDERED: Dextrose 50% Abboject 50 ML SYRINGE ONE (19:37)
[2022-12-16] MEDS ORDERED: Insulin Regular 300 UNITS/3 ML VIAL ONE (19:37)
[2022-12-16] MEDS ORDERED: CALCIUM GLUC 1 GM/NS 50 ML BAG ONE (19:37)
[2022-12-16] MEDS ORDERED: Albuterol 2.5 MG/0.5 ML NEB ONE (19:44)
[2022-12-16 20:14] LABS: SARS-CoV-2 NAA Rapid Test Not Detected (NotDetected)
[2022-12-16] MEDS ORDERED: Ondansetron ODT 4 MG TAB SL PRN (20:15)
[2022-12-16] MEDS ORDERED: D5 1/2 NS w/20 mEq KCL 1,000 ML IV SCH (20:15)
[2022-12-16] MEDS ORDERED: Acetaminophen 325 MG TAB PO PRN (20:15)
[2022-12-16] MEDS ORDERED: Ondansetron PF 4 MG/2 ML Vial IVP PRN (20:15)
[2022-12-16] MEDS ORDERED: NOREPINEPHRINE 8 MG/250 ML-D5W 250 ML ONE (22:21)
[2022-12-16] MEDS ORDERED: Sodium Chloride 0.9% 1,000 ML IV SCH (22:45)
[2022-12-16] MEDS ORDERED: Vancomycin 1 GM in Premix Bag 1 BAG IVPB SCH (23:00)
[2022-12-16] MEDS ORDERED: VANCOMYCIN 1.25 GM/250 ML BAG 1.25 GM in Premix Bag 1 BAG IVPB SCH (23:59)
[2022-12-17 00:20] LABS: Anion Gap 21 mmol/L (10-20); BUN (Urea Nitrogen) 87 mg/dL (8.4-25.7); Calc. Creatinine Clearance 15 mL/min (70-130); Calcium 8.1 mg/dL (7.8-10.44); Carbon Dioxide 17 mmol/L (23-31); Chloride 105 mmol/L (98-107); Estimated GFR 17; Glucose 83 mg/dL (83-110); Potassium 5.3 mmol/L (3.5-5.1); Sodium 138 mmol/L (136-145)
[2022-12-17 00:26] LABS: Troponin I 0.044 ng/mL (< 0.028)
[2022-12-17] MEDS: Cefepime 1 GM in Sodium Chloride 0.9% 100 ML IVPB SCH ×3 (00:32→21:32)
[2022-12-17] MEDS ORDERED: Vancomycin Dose by Levels Sliding Scale (Wt <71) FS SCH (01:00)
[2022-12-17 02:11] LABS: #Neutrophils 7.7 thou/uL (1.40-6.50); %Basophils 0.3 % (0.0-1.0); %Lymphocytes 10.8 % (21.0-51.0); %Monocytes 9.8 % (0.0-10.0); %Neutrophils 78.6 % (42.0-75.0); Hemoglobin 12.3 g/dL (14.0-18.0); Mean Corpuscular Hemoglobin 27.3 pg (27.0-31.0); Mean Platelet Volume 11.8 fL (7.4-10.4); Platelet Count 155 10x3/uL (130-400); Red Blood Cell (RBC) Count 4.51 mill/uL (4.70-6.10); White Blood Cell (WBC) Count 9.8 10x3/uL (4.8-10.8)
[2022-12-17 02:44] LABS: Vancomycin, Random Less than 1.1 ug/mL (See Comment)
[2022-12-17 02:47] LABS: ALT (SGPT) 460 U/L (8-55); AST (SGOT) 559 U/L (5-34); Albumin 3.2 g/dL (3.4-4.8); Alkaline Phosphatase 97 U/L (40-110); Anion Gap 23 mmol/L (10-20); BUN (Urea Nitrogen) 91 mg/dL (8.4-25.7); Bilirubin, Total 1.3 mg/dL (0.2-1.2); Calc. Creatinine Clearance 14 mL/min (70-130); Calcium 8.3 mg/dL (7.8-10.44); Carbon Dioxide 17 mmol/L (23-31); Chloride 104 mmol/L (98-107); Estimated GFR 16; Globulin 3.4 g/dL (2.4-3.5); Glucose 62 mg/dL (83-110); Potassium 5.7 mmol/L (3.5-5.1); Protein, Total 6.6 g/dL (5.8-8.1); Sodium 138 mmol/L (136-145)
[2022-12-17] MEDS ORDERED: Dextrose 5 % And 0.9 % NaCl 1,000 ML IV SCH (03:30)
[2022-12-17] MEDS: Norepinephrine 8 MG in Dextrose 5% in Water 242 ML IVPB PRN ×2 (05:59→16:46)
[2022-12-17 06:03] LABS: Troponin I 0.072 ng/mL (< 0.028)
[2022-12-17] MEDS ORDERED: Dextrose 5%-Lactated Ringers 1,000 ML IV SCH ×2 (09:00→09:15)
[2022-12-17] MEDS ORDERED: Sodium Bicarb 50 MEQ/50 ML VIAL IVP SCH (09:30)
[2022-12-17] MEDS: Famotidine/PF 20 mg/2ml Vial SLOW IVP SCH (10:32)
[2022-12-17] MEDS: Sodium Chloride 0.9% 1,000 ML IV SCH ×2 (11:32→17:38)
[2022-12-17 13:44] LABS: Anion Gap 27 mmol/L (10-20); BUN (Urea Nitrogen) 97 mg/dL (8.4-25.7); Calc. Creatinine Clearance 13 mL/min (70-130); Calcium 7.7 mg/dL (7.8-10.44); Carbon Dioxide 16 mmol/L (23-31); Chloride 104 mmol/L (98-107); Estimated GFR 14; Glucose 73 mg/dL (83-110); Potassium 5.5 mmol/L (3.5-5.1); Sodium 141 mmol/L (136-145)
[2022-12-17] MEDS ORDERED: Dextrose 50% Abboject 50 ML SYRINGE ONE (17:03)
[2022-12-17] MEDS ORDERED: Dextrose 50% Abboject 50 ML SYRINGE IVP PRN (17:15)
[2022-12-17] MEDS ORDERED: Dextrose 5% in Water 1,000 ML IV PRN (17:15)
[2022-12-17] MEDS: Dextrose 5 % And 0.9 % NaCl 1,000 ML IV SCH (20:00)
[2022-12-17] MEDS ORDERED: Guaifenesin DM 100-10/5 ML UDCUP PO PRN (20:47)
[2022-12-17] MEDS ORDERED: Vancomycin 1 GM in Premix Bag 1 BAG IVPB SCH (21:00)
[2022-12-17 21:11] LABS: Anion Gap 27 mmol/L (10-20); BUN (Urea Nitrogen) 97 mg/dL (8.4-25.7); Calc. Creatinine Clearance 12 mL/min (70-130); Calcium 7.4 mg/dL (7.8-10.44); Carbon Dioxide 15 mmol/L (23-31); Chloride 101 mmol/L (98-107); Estimated GFR 13; Glucose 93 mg/dL (83-110); Potassium 5.6 mmol/L (3.5-5.1); Sodium 137 mmol/L (136-145)
[2022-12-18 00:20] LABS: Vancomycin, Random 14.7 ug/mL (See Comment)
[2022-12-18] MEDS ORDERED: Vancomycin HCl 500 MG in Sodium Chloride 0.9% 100 ML IVPB SCH (01:00)
[2022-12-18 01:37] LABS: Anion Gap 26 mmol/L (10-20); BUN (Urea Nitrogen) 100 mg/dL (8.4-25.7); Calc. Creatinine Clearance 12 mL/min (70-130); Calcium 7.2 mg/dL (7.8-10.44); Carbon Dioxide 15 mmol/L (23-31); Chloride 101 mmol/L (98-107); Estimated GFR 13; Glucose 121 mg/dL (83-110); Potassium 5.6 mmol/L (3.5-5.1); Sodium 136 mmol/L (136-145)
[2022-12-18 05:06] LABS: #Monocytes 1.2 thou/uL (0.11-0.59); #Neutrophils 13.1 thou/uL (1.40-6.50); %Basophils 0.1 % (0.0-1.0); %Lymphocytes 5.1 % (21.0-51.0); %Monocytes 8.1 % (0.0-10.0); %Neutrophils 86.1 % (42.0-75.0); Hemoglobin 11.6 g/dL (14.0-18.0); Mean Corpuscular HGB CONC 31.2 g/dL (32.0-36.0); Mean Corpuscular Hemoglobin 27.8 pg (27.0-31.0); Mean Platelet Volume 12.9 fL (7.4-10.4); Platelet Count 98 10x3/uL (130-400); RBC Distribution Width 21.3 % (11.5-14.5); Red Blood Cell (RBC) Count 4.18 mill/uL (4.70-6.10); White Blood Cell (WBC) Count 15.3 10x3/uL (4.8-10.8)
[2022-12-18 05:22] LABS: INR-International Normal Ratio 5.3; PTT 41.7 sec (22.9-36.1); Prothrombin Time 51.2 sec (12.0-14.7)
[2022-12-18 05:26] LABS: Lactic Acid 6.5 mmol/L (0.5-2.2)
[2022-12-18 05:30] LABS: Chloride 102 mmol/L (98-107); Potassium 5.5 mmol/L (3.5-5.1); Sodium 136 mmol/L (136-145)
[2022-12-18 05:31] LABS: Calcium 7.2 mg/dL (7.8-10.44); Glucose 111 mg/dL (83-110)
[2022-12-18 05:32] LABS: Anion Gap 24 mmol/L (10-20); Carbon Dioxide 16 mmol/L (23-31)
[2022-12-18 05:34] LABS: Calc. Creatinine Clearance 12 mL/min (70-130); Estimated GFR 13
[2022-12-18 05:35] LABS: BUN (Urea Nitrogen) 101 mg/dL (8.4-25.7)
[2022-12-18 05:53] LABS: Anisocytosis SLIGHT = 6-15 cells HPF (0-5); Band 10 % (5-11); Burr Cells SLIGHT = 2-5 cells HPF (0-1); CellaVision Operator ID lab.abc; Lymphocytes 3 % (21-51); Monocytes 11 % (0-10); Neutrophil 76 % (42-75); Platelet Morphology Comment Platelets Decreased; Poikilocytosis SLIGHT = 6-15 cells HPF (0-5); Polychromasia SLIGHT = 2-3 cells HPF (0-2); RBC Morphology Within Normal Limits; Smudge Cells 8.9 %; Total Cell Count 101
[2022-12-18] MEDS: Dextrose 5 % And 0.9 % NaCl 1,000 ML IV SCH ×3 (06:11→23:30)
[2022-12-18] MEDS ORDERED: LOKELMA 10 GM PACKET PO SCH ×2 (08:45→11:30)
[2022-12-18] MEDS ORDERED: NOREPINEPHRINE 8 MG/250 ML-D5W 250 ML IVPB SCH (10:45)
[2022-12-18] MEDS ORDERED: Famotidine/PF 20 mg/2ml Vial SLOW IVP SCH (11:30)
[2022-12-18] MEDS: Famotidine/PF 20 mg/2ml Vial SLOW IVP SCH (11:31)
[2022-12-18] MEDS: Albumin 25% 25 GM/100 ML BOT IVPB SCH ×3 (12:41→23:05)
[2022-12-18] MEDS: Cefepime 1 GM in Sodium Chloride 0.9% 100 ML IVPB SCH ×2 (19:26→21:07)
[2022-12-18 22:46] LABS: Vancomycin, Random 12.6 ug/mL (See Comment)
[2022-12-18] MEDS ORDERED: Vancomycin HCl 500 MG in Sodium Chloride 0.9% 100 ML IV SCH (23:00)
[2022-12-19 03:20] LABS: #Neutrophils 12.3 thou/uL (1.40-6.50); %Basophils 0.1 % (0.0-1.0); %Lymphocytes 3.5 % (21.0-51.0); %Neutrophils 88.8 % (42.0-75.0); Mean Corpuscular HGB CONC 30.8 g/dL (32.0-36.0); Mean Corpuscular Hemoglobin 27.6 pg (27.0-31.0); Mean Corpuscular Volume 89.7 fl (78.0-98.0); RBC Distribution Width 21.5 % (11.5-14.5); Red Blood Cell (RBC) Count 3.98 mill/uL (4.70-6.10); White Blood Cell (WBC) Count 13.9 10x3/uL (4.8-10.8)
[2022-12-19 03:22] LABS: Mean Platelet Volume 13.7 fL (7.4-10.4); Platelet Count 64 10x3/uL (130-400)
[2022-12-19 03:32] LABS: PTT 48.4 sec (22.9-36.1); Prothrombin Time 69.1 sec (12.0-14.7)
[2022-12-19 03:38] LABS: INR-International Normal Ratio 7.8
[2022-12-19 03:40] LABS: ALT (SGPT) 2240 U/L (8-55); Albumin 3.4 g/dL (3.4-4.8); Alkaline Phosphatase 108 U/L (40-110); Anion Gap 24 mmol/L (10-20); BUN (Urea Nitrogen) 111 mg/dL (8.4-25.7); Bilirubin, Total 2.8 mg/dL (0.2-1.2); Calc. Creatinine Clearance 10 mL/min (70-130); Carbon Dioxide 13 mmol/L (23-31); Chloride 108 mmol/L (98-107); Estimated GFR 11; Glucose 125 mg/dL (83-110); Potassium 5.6 mmol/L (3.5-5.1); Protein, Total 6.4 g/dL (5.8-8.1); Sodium 139 mmol/L (136-145)
[2022-12-19 03:56] LABS: Calcium 6.6 mg/dL (7.8-10.44)
[2022-12-19 03:58] LABS: AST (SGOT) Greater than 3500 U/L (5-34)
[2022-12-19] MEDS: Albumin 25% 25 GM/100 ML BOT IVPB SCH (06:19)
[2022-12-19 06:59] LABS: Lactic Acid 3.4 mmol/L (0.5-2.2)
[2022-12-19] MEDS: Famotidine/PF 20 mg/2ml Vial SLOW IVP SCH (10:14)
[2022-12-19] MEDS: Dextrose 5 % And 0.9 % NaCl 1,000 ML IV SCH ×2 (10:15→21:19)
[2022-12-19] MEDS ORDERED: Calcium Chloride 1 GM/10 ML Abboject SYRINGE IVP SCH (10:30)
[2022-12-19] MEDS ORDERED: Phytonadione 10 MG in Sodium Chloride 0.9% 50 ML IVPB SCH (11:00)
[2022-12-19 13:55] LABS: Fibrinogen 193 mg/dL (253-463); INR-International Normal Ratio 4.7; Platelet Count 51 10x3/uL (130-400); Prothrombin Time 46.2 sec (12.0-14.7)
[2022-12-19 13:56] LABS: PTT 45.3 sec (22.9-36.1)
[2022-12-19 14:05] LABS: D-Dimer Test 9.74 *mcg/mL (0.27-0.43)
[2022-12-19 14:09] LABS: HBSAg Index 0.18 S/CO (0-0.99); Hep B Core Total Ab Non-Reactive (NonReactive); Hep B Core Total Index 0.15 S/CO (0-0.79); Hep B Surf Ag Non-Reactive S/CO (NonReactive); Hep C IgG Ab Non-Reactive S/CO (NonReactive); Hep C Index 0.23 S/CO (0-0.79)
[2022-12-19 14:16] LABS: HBSAB Concentration 65.36 mIU/mL; Hep B Surf AB Reactive (NonReactive)
[2022-12-19 14:59] LABS: HBCM Index 0.12 S/CO (0-0.79); Hep A IgM AB Non-Reactive S/CO (NonReactive); Hep A IgM S/CO 0.11 S/CO (0-0.79); Hepatitis B Core IgM Abs Non-Reactive S/CO (NonReactive)
[2022-12-19] MEDS: Cefepime 1 GM in Sodium Chloride 0.9% 100 ML IVPB SCH (21:19)
[2022-12-19 23:34] LABS: Vancomycin, Random 10.6 ug/mL (See Comment)
[2022-12-19] MEDS ORDERED: Vancomycin HCl 500 MG in Sodium Chloride 0.9% 100 ML IV SCH (23:59)
[2022-12-20 04:40] LABS: #Monocytes 0.4 thou/uL (0.11-0.59); #Neutrophils 7.3 thou/uL (1.40-6.50); %Basophils 0.1 % (0.0-1.0); %Lymphocytes 2.5 % (21.0-51.0); %Monocytes 5.2 % (0.0-10.0); %Neutrophils 91.7 % (42.0-75.0); Hemoglobin 10.5 g/dL (14.0-18.0); Mean Corpuscular HGB CONC 31.3 g/dL (32.0-36.0); Mean Corpuscular Hemoglobin 27.6 pg (27.0-31.0); Mean Corpuscular Volume 88.2 fl (78.0-98.0); RBC Distribution Width 21.8 % (11.5-14.5); White Blood Cell (WBC) Count 7.9 10x3/uL (4.8-10.8)
[2022-12-20 04:47] LABS: INR-International Normal Ratio 4.2; Prothrombin Time 42.2 sec (12.0-14.7)
[2022-12-20 04:48] LABS: PTT 42.8 sec (22.9-36.1)
[2022-12-20 04:49] LABS: Fibrinogen 190 mg/dL (253-463); INR-International Normal Ratio 4.2; PTT 41.9 sec (22.9-36.1); Prothrombin Time 42.1 sec (12.0-14.7)
[2022-12-20 04:50] LABS: Platelet Count 48 10x3/uL (130-400)
[2022-12-20 04:58] LABS: D-Dimer Test 10.84 *mcg/mL (0.27-0.43)
[2022-12-20 05:00] LABS: Phosphorus 6.8 mg/dL (2.3-4.7)
[2022-12-20 05:04] LABS: ALT (SGPT) 1763 U/L (8-55); AST (SGOT) 3343 U/L (5-34); Albumin 3.7 g/dL (3.4-4.8); Alkaline Phosphatase 155 U/L (40-110); Anion Gap 19 mmol/L (10-20); BUN (Urea Nitrogen) 89 mg/dL (8.4-25.7); Bilirubin, Total 3.3 mg/dL (0.2-1.2); Calc. Creatinine Clearance 12 mL/min (70-130); Carbon Dioxide 20 mmol/L (23-31); Chloride 107 mmol/L (98-107); Estimated GFR 12; Globulin 2.9 g/dL (2.4-3.5); Glucose 109 mg/dL (83-110); Magnesium 2.7 mg/dL (1.6-2.6); Potassium 4.4 mmol/L (3.5-5.1); Protein, Total 6.6 g/dL (5.8-8.1); Sodium 142 mmol/L (136-145)
[2022-12-20 06:27] LABS: Platelet Count 53 10x3/uL (130-400)
[2022-12-20 07:17] LABS: Vancomycin, Random 19.1 ug/mL (See Comment)
[2022-12-20] MEDS ORDERED: Phytonadione 10 MG in Sodium Chloride 0.9% 50 ML IVPB SCH (09:15)
[2022-12-20] MEDS ORDERED: DOBUTamine 500 mg/250 ml 250 ML IVPB SCH (09:15)
[2022-12-20] MEDS: Dextrose 5 % And 0.9 % NaCl 1,000 ML IV SCH (09:34)
[2022-12-20] MEDS: Famotidine/PF 20 mg/2ml Vial SLOW IVP SCH (09:38)
[2022-12-20] MEDS: Dextrose 10% in Water 1,000 ML IV SCH (16:58)
[2022-12-20] MEDS ORDERED: Vancomycin HCl 500 MG in Sodium Chloride 0.9% 100 ML IVPB SCH (17:00)
[2022-12-20] MEDS: Cefepime 1 GM in Sodium Chloride 0.9% 100 ML IVPB SCH (22:03)
[2022-12-21 04:54] LABS: Hemoglobin 9.8 g/dL (14.0-18.0); Mean Corpuscular HGB CONC 30.6 g/dL (32.0-36.0); Mean Corpuscular Hemoglobin 26.7 pg (27.0-31.0); Mean Corpuscular Volume 87.2 fl (78.0-98.0); Mean Platelet Volume 12.5 fL (7.4-10.4); RBC Distribution Width 21.3 % (11.5-14.5); Red Blood Cell (RBC) Count 3.67 mill/uL (4.70-6.10); White Blood Cell (WBC) Count 8.2 10x3/uL (4.8-10.8)
[2022-12-21 05:03] LABS: Platelet Count 38 10x3/uL (130-400)
[2022-12-21 05:04] LABS: Delete Auto Diff?? YES; Manual Diff?? YES
[2022-12-21 05:06] LABS: Vancomycin, Random 18.7 ug/mL (See Comment)
[2022-12-21 05:10] LABS: INR-International Normal Ratio 3.6; PTT 41.1 sec (22.9-36.1); Prothrombin Time 37.3 sec (12.0-14.7)
[2022-12-21 05:15] LABS: ALT (SGPT) 1386 U/L (8-55); AST (SGOT) 2131 U/L (5-34); Albumin 3.2 g/dL (3.4-4.8); Alkaline Phosphatase 154 U/L (40-110); Anion Gap 16 mmol/L (10-20); BUN (Urea Nitrogen) 64 mg/dL (8.4-25.7); Bilirubin, Total 4.1 mg/dL (0.2-1.2); Calc. Creatinine Clearance 13 mL/min (70-130); Calcium 7.3 mg/dL (7.8-10.44); Carbon Dioxide 22 mmol/L (23-31); Chloride 107 mmol/L (98-107); Estimated GFR 14; Globulin 2.8 g/dL (2.4-3.5); Glucose 84 mg/dL (83-110); Potassium 3.7 mmol/L (3.5-5.1); Sodium 141 mmol/L (136-145)
[2022-12-21 05:46] LABS: Anisocytosis MODERATE=16-30 cells HPF (0-5); Band 10 % (5-11); Burr Cells MODERATE= 6-15 cells HPF (0-1); Hypochromia SLIGHT = 6-15 cells HPF (0-5); Lymphocytes 7 % (21-51); Macrocytosis SLIGHT = 6-15 cells HPF (0-5); Monocytes 8 % (0-10); Neutrophil 75 % (42-75); Nucleated RBC (Manual Ct) 1 % (0); Ovalocytes SLIGHT = 2-5 cells HPF (0-1); Platelet Morphology Comment Platelets Decreased; Poikilocytosis SLIGHT = 6-15 cells HPF (0-5); Polychromasia MODERATE = 3-4 cells HPF (0-2); Target Cells SLIGHT = 2-5 cells HPF (0-1); Total Cell Count 101
[2022-12-21] MEDS ORDERED: Vancomycin Hemodialysis Sliding Scale FS SCH (07:15)
[2022-12-21] MEDS: Dextrose 10% in Water 1,000 ML IV SCH ×2 (08:36→20:21)
[2022-12-21] MEDS: Famotidine/PF 20 mg/2ml Vial SLOW IVP SCH (08:40)
[2022-12-21] MEDS ORDERED: Phytonadione 10 MG in Sodium Chloride 0.9% 50 ML IVPB SCH (11:00)
[2022-12-21] MEDS ORDERED: Vancomycin HCl 500 MG in Sodium Chloride 0.9% 100 ML IVPB SCH (17:00)
[2022-12-21] MEDS ORDERED: Albumin 25% 25 GM/100 ML BOT IVPB SCH (17:30)
[2022-12-21] MEDS: Albumin 25% 100 ML ONE ×2 (17:41→17:56)
[2022-12-21] MEDS: DOBUTamine 500 mg/250 ml 250 ML IVPB SCH (20:21)
[2022-12-21] MEDS: Cefepime 1 GM in Sodium Chloride 0.9% 100 ML IVPB SCH (21:58)
[2022-12-22 04:13] LABS: #Eosinphils 0.2 thou/uL (0.0-0.7); #Monocytes 1.7 thou/uL (0.11-0.59); #Neutrophils 6.9 thou/uL (1.40-6.50); %Basophils 0.2 % (0.0-1.0); %Eosinophils 1.7 % (0.0-10.0); %Lymphocytes 8.2 % (21.0-51.0); %Monocytes 17.4 % (0.0-10.0); %Neutrophils 71.9 % (42.0-75.0); Hemoglobin 9.4 g/dL (14.0-18.0); Mean Corpuscular HGB CONC 32.2 g/dL (32.0-36.0); Mean Corpuscular Hemoglobin 27.6 pg (27.0-31.0); Mean Corpuscular Volume 85.6 fl (78.0-98.0); RBC Distribution Width 21.1 % (11.5-14.5); Red Blood Cell (RBC) Count 3.41 mill/uL (4.70-6.10); White Blood Cell (WBC) Count 9.6 10x3/uL (4.8-10.8)
[2022-12-22 04:17] LABS: Platelet Count 36 10x3/uL (130-400)
[2022-12-22 04:26] LABS: INR-International Normal Ratio 2.9; PTT 44.6 sec (22.9-36.1); Prothrombin Time 31.3 sec (12.0-14.7)
[2022-12-22 04:37] LABS: ALT (SGPT) 945 U/L (8-55); AST (SGOT) 1169 U/L (5-34); Albumin 3.1 g/dL (3.4-4.8); Alkaline Phosphatase 173 U/L (40-110); Anion Gap 13 mmol/L (10-20); BUN (Urea Nitrogen) 39 mg/dL (8.4-25.7); Bilirubin, Total 5.2 mg/dL (0.2-1.2); Calc. Creatinine Clearance 19 mL/min (70-130); Carbon Dioxide 25 mmol/L (23-31); Chloride 102 mmol/L (98-107); Estimated GFR 21; Globulin 2.4 g/dL (2.4-3.5); Glucose 116 mg/dL (83-110); Potassium 2.8 mmol/L (3.5-5.1); Protein, Total 5.5 g/dL (5.8-8.1); Sodium 137 mmol/L (136-145)
[2022-12-22] MEDS: Potassium Chloride 40 MEQ in Premix Bag 1 BAG IVPB SCH ×2 (08:57→12:58)
[2022-12-22] MEDS: Famotidine/PF 20 mg/2ml Vial SLOW IVP SCH (09:01)
[2022-12-22] MEDS ORDERED: Phytonadione 10 MG in Sodium Chloride 0.9% 50 ML IVPB SCH (09:30)
[2022-12-22 15:21] VITALS: BP 98/47
[2022-12-22] MEDS: Dextrose 10% in Water 1,000 ML IV SCH ×2 (16:52→22:18)
[2022-12-22] MEDS: Cefepime 1 GM in Sodium Chloride 0.9% 100 ML IVPB SCH (21:17)
[2022-12-22 23:22] LABS: Potassium 3.8 mmol/L (3.5-5.1)
[2022-12-23] MEDS: DOBUTamine 500 mg/250 ml 250 ML IVPB SCH (02:45)
[2022-12-23 05:46] LABS: #Eosinphils 0.2 thou/uL (0.0-0.7); #Neutrophils 8.6 thou/uL (1.40-6.50); %Basophils 0.2 % (0.0-1.0); %Eosinophils 1.5 % (0.0-10.0); %Lymphocytes 8.1 % (21.0-51.0); %Monocytes 23.3 % (0.0-10.0); %Neutrophils 66.2 % (42.0-75.0); Hemoglobin 10.7 g/dL (14.0-18.0); Mean Corpuscular HGB CONC 31.9 g/dL (32.0-36.0); Mean Corpuscular Hemoglobin 27.2 pg (27.0-31.0); Mean Corpuscular Volume 85.2 fl (78.0-98.0); RBC Distribution Width 21.2 % (11.5-14.5); Red Blood Cell (RBC) Count 3.93 mill/uL (4.70-6.10)
[2022-12-23 05:50] LABS: Platelet Count 29 10x3/uL (130-400)
[2022-12-23 05:51] LABS: Manual Diff?? NO; Platelet Count 32 10x3/uL (130-400)
[2022-12-23 06:03] LABS: Fibrinogen 199 mg/dL (253-463)
[2022-12-23 06:04] LABS: INR-International Normal Ratio 2.1; PTT 42.9 sec (22.9-36.1); Prothrombin Time 24.9 sec (12.0-14.7)
[2022-12-23 06:11] LABS: D-Dimer Test 14.58 *mcg/mL (0.27-0.43)
[2022-12-23 06:15] LABS: ALT (SGPT) 747 U/L (8-55); AST (SGOT) 618 U/L (5-34); Albumin 2.7 g/dL (3.4-4.8); Alkaline Phosphatase 173 U/L (40-110); Anion Gap 12 mmol/L (10-20); BUN (Urea Nitrogen) 58 mg/dL (8.4-25.7); Bilirubin, Total 5.8 mg/dL (0.2-1.2); Calc. Creatinine Clearance 15 mL/min (70-130); Calcium 8.2 mg/dL (7.8-10.44); Carbon Dioxide 24 mmol/L (23-31); Chloride 103 mmol/L (98-107); Estimated GFR 14; Globulin 2.6 g/dL (2.4-3.5); Glucose 151 mg/dL (83-110); Potassium 3.6 mmol/L (3.5-5.1); Protein, Total 5.3 g/dL (5.8-8.1); Sodium 135 mmol/L (136-145)
[2022-12-23 06:29] LABS: Anisocytosis MARKED = >30 cells HPF (0-5); CellaVision Operator ID LAB.CLH1; Platelet Morphology Comment Platelets Decreased; Poikilocytosis MODERATE=16-30 cells HPF (0-5)
[2022-12-23 07:39] LABS: Vancomycin, Random 17.9 ug/mL (See Comment)
[2022-12-23] MEDS: Famotidine/PF 20 mg/2ml Vial SLOW IVP SCH (08:35)
[2022-12-23] MEDS: Dextrose 10% in Water 1,000 ML IV SCH (08:48)
[2022-12-23] MEDS ORDERED: DOBUTamine 500 mg/250 ml 250 ML IVPB SCH (09:55)
[2022-12-23] MEDS: Dextrose 5% in Water 1,000 ML IV SCH ×2 (10:39→23:22)
[2022-12-23 13:14] VITALS: BMI 20.3
[2022-12-23] MEDS ORDERED: Vancomycin HCl 500 MG in Sodium Chloride 0.9% 100 ML IVPB SCH (17:00)
[2022-12-24 04:10] LABS: #Eosinphils 0.2 thou/uL (0.0-0.7); #Monocytes 3.5 thou/uL (0.11-0.59); #Neutrophils 9.6 thou/uL (1.40-6.50); %Basophils 0.2 % (0.0-1.0); %Eosinophils 1.2 % (0.0-10.0); %Monocytes 24.1 % (0.0-10.0); Mean Corpuscular HGB CONC 32.6 g/dL (32.0-36.0); Mean Corpuscular Hemoglobin 27.2 pg (27.0-31.0); Mean Corpuscular Volume 83.2 fl (78.0-98.0); RBC Distribution Width 21.1 % (11.5-14.5); Red Blood Cell (RBC) Count 4.05 mill/uL (4.70-6.10); White Blood Cell (WBC) Count 14.6 10x3/uL (4.8-10.8)
[2022-12-24 04:19] LABS: Platelet Count 30 10x3/uL (130-400)
[2022-12-24 04:30] LABS: INR-International Normal Ratio 1.7; Prothrombin Time 20.9 sec (12.0-14.7)
[2022-12-24 04:37] LABS: ALT (SGPT) 611 U/L (8-55); AST (SGOT) 345 U/L (5-34); Albumin 2.6 g/dL (3.4-4.8); Alkaline Phosphatase 176 U/L (40-110); Anion Gap 14 mmol/L (10-20); BUN (Urea Nitrogen) 75 mg/dL (8.4-25.7); Bilirubin, Total 5.2 mg/dL (0.2-1.2); Calc. Creatinine Clearance 13 mL/min (70-130); Calcium 8.2 mg/dL (7.8-10.44); Carbon Dioxide 23 mmol/L (23-31); Chloride 100 mmol/L (98-107); Estimated GFR 12; Globulin 2.7 g/dL (2.4-3.5); Glucose 95 mg/dL (83-110); Potassium 3.9 mmol/L (3.5-5.1); Protein, Total 5.3 g/dL (5.8-8.1); Sodium 133 mmol/L (136-145)
[2022-12-24] MEDS: Famotidine/PF 20 mg/2ml Vial SLOW IVP SCH (09:44)
[2022-12-24] MEDS ORDERED: Albumin 25% 100 ML ONE (11:21)
[2022-12-24] MEDS ORDERED: DOBUTamine 500 mg/250 ml 250 ML IVPB SCH (11:22)
[2022-12-24] MEDS ORDERED: Albumin 25% 25 GM/100 ML BOT IVPB SCH (11:45)
[2022-12-24] MEDS ORDERED: NOREPINEPHRINE 8 MG/250 ML-D5W 250 ML IVPB SCH (11:45)
[2022-12-24 13:27] LABS: Hemoglobin 10.6 g/dL (14.0-18.0)
[2022-12-24] MEDS ORDERED: Dextrose 5 % And 0.9 % NaCl 1,000 ML IV SCH (13:30)
[2022-12-24] MEDS ORDERED: Pantoprazole 80 MG, Admixture Fee 1 EACH in Sodium Chloride 0.9% 100 ML IVPB SCH (13:30)
[2022-12-24 13:41] LABS: INR-International Normal Ratio 1.7; PTT 40.7 sec (22.9-36.1); Prothrombin Time 20.4 sec (12.0-14.7)
[2022-12-24] MEDS: Dextrose 10% in Water 1,000 ML IV SCH ×2 (13:54→16:41)
[2022-12-24] MEDS: Dextrose 5% in Water 1,000 ML IV SCH (13:55)
[2022-12-24] MEDS ORDERED: Cefepime 1 GM in Sodium Chloride 0.9% 100 ML IVPB SCH (15:00)
[2022-12-24 19:29] VITALS: TEMP 97.5
[2022-12-24] MEDS ORDERED: Morphine 2 MG/ML VIAL SLOW IVP PRN (19:50)
[2022-12-24] MEDS ORDERED: Lorazepam 2 MG/ML VIAL SLOW IVP PRN (19:51)
[2022-12-24] MEDS ORDERED: Pantoprazole 40 MG VIAL IVP SCH (21:00)
== END 2022-12-24 21:11 | disposition hospice, inpatient (51) | DRG 871 ==
LOC: ERS 16:53 → CCU 22:26 → IMCU/EMU 12-23 12:46
PROVIDERS: ADMIT Hospitalist; ATTEND Internal Medicine
PROC: 3E033XZ Introduction of Vasopressor into Peripheral Vein, Percutaneous Approach (ICD-10-PCS; principal; 2022-12-16)
PROC: 3E03329 Introduction of Other Anti-infective into Peripheral Vein, Percutaneous Approach (ICD-10-PCS; 2022-12-16)
PROC: 30233L1 Transfusion of Nonautologous Fresh Plasma into Peripheral Vein, Percutaneous Approach (ICD-10-PCS; 2022-12-19)
PROC: 06HY33Z Insertion of Infusion Device into Lower Vein, Percutaneous Approach (ICD-10-PCS; 2022-12-19)
PROC: 5A1D70Z Performance of Urinary Filtration, Intermittent, Less than 6 Hours Per Day (ICD-10-PCS; 2022-12-19)
DX: A41.50 Gram-negative sepsis, unspecified (principal); D65 Disseminated intravascular coagulation [defibrination syndrome]; R65.21 Severe sepsis with septic shock; N17.0 Acute kidney failure with tubular necrosis; G93.41 Metabolic encephalopathy; K72.00 Acute and subacute hepatic failure without coma; J15.6 Pneumonia due to other Gram-negative bacteria; I50.43 Acute on chronic combined systolic (congestive) and diastolic (congestive) heart failure; E87.20 Acidosis, unspecified; I13.0 Hypertensive heart and chronic kidney disease with heart failure and stage 1 through stage 4 chronic kidney disease, or unspecified chronic kidney disease; E72.4 Disorders of ornithine metabolism; K56.7 Ileus, unspecified; D62 Acute posthemorrhagic anemia; K92.2 Gastrointestinal hemorrhage, unspecified; E44.0 Moderate protein-calorie malnutrition; Z66 Do not resuscitate; Z51.5 Encounter for palliative care; Z20.822 Contact with and (suspected) exposure to COVID-19; E87.5 Hyperkalemia; J45.909 Unspecified asthma, uncomplicated; N18.30 Chronic kidney disease, stage 3 unspecified; I48.0 Paroxysmal atrial fibrillation; Z88.0 Allergy status to penicillin; Z91.013 Allergy to seafood; Z91.041 Radiographic dye allergy status; Z79.899 Other long term (current) drug therapy; Z95.810 Presence of automatic (implantable) cardiac defibrillator; Z79.890 Hormone replacement therapy; Z79.51 Long term (current) use of inhaled steroids; Z68.20 Body mass index [BMI] 20.0-20.9, adult
CPT/HCPCS: 36415; 36416; 36430; 36556; 70450; 71045; 71250; 74018; 74230; 76705; 80048; 80053; 80074; 80202; 82140; 82553; 83605; 83735; 84100; 84145; 84484; 85025; 85049; 85300; 85362; 85379; 85384; 85610; 85730; 86704; 86850; 86900; 86901; 87040; 87081; 87149; 90935; 93005; 93306; 93970; 96365; 96375; G0257; J0456; J0613; J0692; J0696; J1250; J1642; J1650; J1815; J3370; J3430; J3480; J3490; J7042; J7050; J7070; J7611; J7999; P9047; P9059; S0028